=== PATIENT | female | born 1975 | race Hispanic/Latino ===

== ENCOUNTER 2018-06-01 12:24 | Outpatient (CLI) | payer OTHER ==
[2018-06-01 12:48] LABS: Basophils # (Auto) 0.1 K/mm3 (0.0-0.1); Basophils % (Auto) 0.8 % (0.0-1.8); Eosinophils # (Auto) 0.3 K/mm3 (0.0-0.4); Eosinophils % (Auto) 2.4 % (0.0-4.3); Hematocrit 36.4 % (30.3-42.9); Hemoglobin 11.6 gm/dl (10.1-14.3); Lymphocytes # (Auto) 2.5 K/mm3 (1.2-5.4); Lymphocytes % (Auto) 22.6 % (13.4-35.0); Mean Corpuscular HGB Conc 32 % (30-34); Mean Corpuscular Volume 74 fl (79-97); Monocytes # (Auto) 0.7 K/mm3 (0.0-0.8); Monocytes % (Auto) 6.1 % (0.0-7.3); Platelet Count 510 K/mm3 (140-440); Red Blood Count 4.91 M/mm3 (3.65-5.03)
[2018-06-01 13:07] LABS: Red Cell Distribution Width 20.3 % (13.2-15.2)
[2018-06-01 13:22] LABS: Free T4 (Free Thyroxine) 0.89 ng/dL (0.76-1.46)
== END 2018-06-01 12:25 | disposition home or self-care (01) ==
LOC: LAB 12:24
PROVIDERS: ATTEND Psychiatry & Neurology Neurology
DX: N28.9 Disorder of kidney and ureter, unspecified (principal); Z88.8 Allergy status to other drugs, medicaments and biological substances
CPT/HCPCS: 36415; 80051; 84439; 84443; 84450; 84460; 85025